=== PATIENT | male | born 1995 | race African-American/Black ===

== ENCOUNTER 2017-04-23 12:37 | Emergency (ER) | payer OTHER ==
[~2017-04-23] VITALS: Ht 177.8 cm; Wt 84.0 kg
[~2017-04-23 12:37] MED LIST: AMOXICILLIN875 MG PO; MOTRIN600 MG PO
[2017-04-23 13:56] LABS: EOSINOPHIL (%) 0.2 % (0-5); IMMATURE GRANULOCYTE (%) 0.3 % (0.0-0.7); INSTRUMENT ABS NEUTROPHIL CT 4.6 K/uL; LYMPHOCYTE COUNT 1.2 K/uL (1.0-2.8); MCH 30.6 PG (29.0-34.0); MCHC 33.3 G/DL (30.0-36.0); MCV 91.7 FL (86-99); MEAN PLAT.VOLUME 9.6 uM^3 (9.0-12.4); MONOCYTE (%) 9.8 % (3-12); MONOCYTE COUNT 0.6 K/uL (0-0.8); NEUTROPHIL (%) 70.8 % (45-76); NEUTROPHIL COUNT 4.6 K/uL (1.8-6.4); PLATELET COUNT 235 K/uL (156-360); RBC DIS.WIDTH-CV 12.2 % (11.8-14.6); RBC DIS.WIDTH-SD 41.4 % (39-53); RED BLOOD COUNT 4.58 M/uL (4.00-5.50); WHITE BLOOD COUNT 6.4 K/uL (4.1-10.2)
[2017-04-23 14:04] LABS: CHLORIDE 104 mEq/L (99-109)
[2017-04-23 14:05] LABS: SODIUM 140 mEq/L (136-147)
[2017-04-23 14:06] LABS: GLUCOSE 89 mg/dL (70-99)
[2017-04-23 14:08] LABS: ANION GAP 10 MEQ/L (2-14)
[2017-04-23 14:10] LABS: GFR ESTIMATE (CALCULATED) > 59 mL/min/
[2017-04-23 14:11] LABS: UREA NITROGEN (BUN) 16 mg/dL (9-23)
[2017-04-23 14:34] LABS: SAMPLE HEMOLYSIS CHECK 0; SAMPLE ICTERIC CHECK 0; SAMPLE LIPEMIA CHECK 0
[2017-04-23 15:45] VITALS: BP 124/71
== END 2017-04-23 15:45 | disposition home or self-care (01) ==
LOC: EME 12:37
PROVIDERS: Emergency Medicine
DX: G40.909 Epilepsy, unspecified, not intractable, without status epilepticus (principal); Z91.14 Patient's other noncompliance with medication regimen
CPT/HCPCS: 80048; 80156; 85025; 93005; 99281; 99285

== ENCOUNTER 2018-03-05 11:41 | Emergency (ER) | payer OTHER ==
[~2018-03-05] VITALS: Ht 177.8 cm; Wt 89.3 kg
[2018-03-05] MEDS ORDERED: BACTRIM,SEPT1 TABLET PO (13:28)
[2018-03-05 13:54] VITALS: BP 119/52
== END 2018-03-05 13:55 | disposition home or self-care (01) ==
LOC: EME 11:41
PROC: 0H98XZZ Drainage of Buttock Skin, External Approach (ICD-10-PCS; principal; 2018-03-05)
DX: L05.01 Pilonidal cyst with abscess (principal)
CPT/HCPCS: 99281; 99284